=== PATIENT | female | born 1995 | race Caucasian/White ===

== ENCOUNTER 2017-07-29 21:20 | Observation (INO) | payer OTHER | END 2017-07-29 23:00 | disposition home or self-care (01) | LOC: MW.OBCHECK 21:20 → MW.OB 21:23 → MW.OBCHECK 21:44 → MW.OB 21:44 | PROVIDERS: ADMIT Obstetrics & Gynecology; ATTEND Obstetrics & Gynecology | DX: O41.8X31 Other specified disorders of amniotic fluid and membranes, third trimester, fetus 1 (principal); Z3A.38 38 weeks gestation of pregnancy | CPT/HCPCS: 59025; 84112 ==

== ENCOUNTER 2017-08-03 04:05 | Inpatient (IN) | payer OTHER ==
[2017-08-03] MEDS ORDERED: Lidocaine 1% 50 ML MDV INJECT PRN (07:35)
[2017-08-03] MEDS ORDERED: Tranexamic Acid 1,000 MG in Sodium Chloride 0.9% 100 ML IV PRN (07:35)
[2017-08-03] MEDS ORDERED: Sodium Chloride 0.9% 10 ML Syringe FLUSH PRN (07:35)
[2017-08-03] MEDS ORDERED: Methylergonovine 0.2 MG/1 ML Amp IM PRN (07:35)
[2017-08-03] MEDS ORDERED: Nalbuphine 10 MG/1 ML Vial IVPUSH PRN (07:35)
[2017-08-03] MEDS ORDERED: Carboprost Tromethamine 250 MCG/1 ML Amp IM PRN (07:35)
[2017-08-03] MEDS ORDERED: Misoprostol 200 MCG Tab PO PRN (07:35)
[2017-08-03] MEDS ORDERED: Water For Irrigation,Sterile 1,000 ML Container IRR PRN (07:35)
[2017-08-03] MEDS ORDERED: Sodium Chloride 0.9% 2.5 ML Syringe FLUSH PRN (07:35)
--- NOTE | 2017-08-03 07:42 | PCM.LDHP ---
L&D History of Present Illness - General Date of Service: 08/03/17 Admit Problem/Dx: Patient Status Order with Admit Dx/Problem 08/03/17 06:04 Patient Status [ADT] Routine Admission Diagnosis/Problem Admission Diagnosis/Problem - planned 08/03/17 07:38 21 yo EDC 08/07/2017 39 3/7wks AB+, RI, GBS neg. Comes in early labor making cervical change Source of Information: Patient History Limitations: Reports: No Limitations - History of Present Illness Location, : Reports: Abdomen Quality: Reports: Ache Severity: Moderate Pain Score: 10 Improves with: Reports: None Worsens with: Reports: None Associated Symptoms: Reports: N - Related Data Allergies/Adverse Reactions: Allergies Allergy/AdvReac Type Severity Reaction Status Date / Time No Known Allergies Allergy Verified 07/29/17 21:43 H&P Review of Systems - Review of Systems: Review Of Systems: See Below General: Reports: No Symptoms HEENT: Reports: No Symptoms Pulmonary: Reports: No Symptoms Cardiovascular: Reports: No Symptoms Gastrointestinal: Reports: No Symptoms Genitourinary: Reports: No Symptoms Musculoskeletal: Reports: No Symptoms Skin: Reports: No Symptoms Psychiatric: Reports: No Symptoms Neurological: Reports: No Symptoms Hematologic/Lymphatic: Reports: No Symptoms Immunologic: Reports: No Symptoms L&D Exam - Exam Exam: See Below - Vital Signs Weight: 96.162 kg - OB Specific Fundal Height In cm: 39 Contraction Intensity: Moderate to Strong Movement: Active Heart Tones: Present Heart Rate (FHR) Variability: Moderate (6-25 bmp) Presentation: Vertex - Montejo Score Montejo Score Cervix Position: Posterior Montejo Score Consistency: Soft Montejo Score Effacement: 51-70% Montejo Score Dilation: 3-4 cm Montejo Score 's Station: -2 Montejo Score Total: 7 - Exam General: Alert, Cooperative HEENT: Hearing Intact Lungs: Clear to Auscultation, Normal Respiratory Effort Cardiovascular: Regular Rate, Regular Rhythm, Normal S1, Normal S2 GI/Abdominal Exam: Soft Rectal Exam: Deferred Genitourinary: Normal external exam, Cervical dilitation Back Exam: Full Range of Motion Extremities: Normal Range of Motion, Non-Tender, No Pedal Edema, Normal Capillary Refill Skin: Warm, Dry, Intact Neurological: Cranial Nerves Intact, Normal Gait, Normal Speech, Normal Tone Psychiatric: Alert, Normal Affect, Normal Mood - Problem List (1) Supervision of normal IUP (intrauterine ) in primigravida SNOMED Code(s): 51361956, 145333131, 920678724, 729576836 ICD Code: Z34.00 - ENCNTR FOR SUPRVSN OF NORMAL FIRST , UNSP TRIMESTER Status: Acute Priority: High Current Visit: Yes Qualifiers: Trimester: third trimester Qualified Code(s): Z34.03 - Encounter for supervision of normal first , third trimester Problem List Initiated/Reviewed/Updated: Yes Orders Last 24hrs: Active Orders 24 hr Category Date Time Status Patient Status [ADT] Routine ADT 08/03/17 06:04 Active Non Stress Test [RC] PER UNIT ROUTINE Care 08/03/17 06:04 Active Up ad Dana [RC] ASDIRECTED Care 08/03/17 06:04 Active Vaginal Exam [RC] Click to Edit Care 08/03/17 06:04 Active Vital Signs [RC] PER UNIT ROUTINE Care 08/03/17 06:04 Active Resuscitation Status Routine Resus Stat 08/03/17 06:03 Ordered Assessment/Plan Comment:: Labor A: 21 yo EDC 08/07/2017 39 3/7wks AB+, RI, GBS neg. Comes in early labor making cervical change P: Admit to L&D, epidural prn, anticipate
[2017-08-03] MEDS ORDERED: Oxytocin/0.9 % Sodium Chloride 30 UNIT/500 ML BAG IV SCH ×2 (07:45→12:15)
[2017-08-03] MEDS: Lactated Ringers 1,000 ML IV SCH ×2 (09:17→12:26)
--- NOTE | 2017-08-03 10:06 | PCM.PREANE ---
Preanesthetic Assessment - Anesthesia/Transfusion/Family Hx Anesthesia History: Prior Anesthesia Without Reaction Transfusion History: No Prior Transfusion(s) - Physical Assessment NPO Status Date: 08/03/17 NPO Status Time: 06:00 Height: 1.7 m Weight: 96.162 kg ASA Class: 1 Airway Class: Mallampati = 2 Dentition: Reports: Normal Dentition ROM/Head Extension: Full - Lab Values: Laboratory Last Values WBC 15.42 K/uL (4.0-11.0) H 08/03/17 07:57 RBC 4.02 M/uL (4.30-5.90) L 08/03/17 07:57 Hgb 11.0 g/dL (12.0-16.0) L 08/03/17 07:57 Hct 32.8 % (36.0-46.0) L 08/03/17 07:57 MCV 81.6 fL (80.0-98.0) 08/03/17 07:57 MCH 27.4 pg (27.0-32.0) 08/03/17 07:57 MCHC 33.5 g/dL (31.0-37.0) 08/03/17 07:57 RDW Std Deviation 42.2 fl (28.0-62.0) 08/03/17 07:57 RDW Coeff of Chip 14 % (11.0-15.0) 08/03/17 07:57 Plt Count 269 K/uL (150-400) 08/03/17 07:57 MPV 10.60 fL (7.40-12.00) 08/03/17 07:57 Nucleated RBC % 0.0 /100WBC 08/03/17 07:57 Nucleated RBCs # 0 K/uL 08/03/17 07:57 Blood Type AB POSITIVE 08/03/17 07:57 Antibody Screen NEGATIVE 08/03/17 07:57 - Allergies Allergies/Adverse Reactions: Allergies Allergy/AdvReac Type Severity Reaction Status Date / Time No Known Allergies Allergy Verified 07/29/17 21:43 - Acknowledgements Anesthesia Type Planned: Epidural Pt an Appropriate Candidate for the Planned Anesthesia: Yes Alternatives and Risks of Anesthesia Discussed w Pt/Guardian: Yes Pt/Guardian Understands and Agrees with Anesthesia Plan: Yes PreAnesthesia Questionnaire - Past Surgical History Musculoskeletal Surgical History: Reports: Other (See Below) Other Musculoskeletal Surgeries/Procedures:: pins in right ankle - SUBSTANCE USE Smoking Status *Q: Never Smoker Second Hand Smoke Exposure: No - CURRENT (IN HOUSE) MEDS Current Meds: Current Medications Carboprost Tromethamine (Hemabate Ds) 250 mcg IM ASDIRECTED PRN PRN Reason: Post Hemorrhage Tranexamic Acid 1,000 mg/ (Sodium Chloride) 110 mls @ 660 mls/hr IV ONETIME PRN PRN Reason: Bleeding Lactated Ringer's (Ringers, Lactated) 1,000 mls @ 150 mls/hr IV ASDIRECTED MAGDALENA Oxytocin/Sodium Chloride (Oxytocin 30 Unit/500 Ml-Ns) 30 unit in 500 mls @ 500 mls/hr IV TITRATE MAGDALENA Lidocaine HCl (Xylocaine 1%) 50 ml INJECT .ONCE PRN PRN Reason: Laceration repair Methylergonovine Maleate (Methergine) 0.2 mg IM ASDIRECTED PRN PRN Reason: Post Hemorrhage Misoprostol (Cytotec) 200 mcg PO .ONCE PRN PRN Reason: Post Hemorrhage Nalbuphine HCl (Nubain) 10 mg IVPUSH Q1H PRN PRN Reason: Pain (severe 7-10) Sodium Chloride (Saline Flush) 10 ml FLUSH ASDIRECTED PRN PRN Reason: Keep Vein Open Sodium Chloride (Saline Flush) 2.5 ml FLUSH ASDIRECTED PRN PRN Reason: Keep Vein Open Sterile Water (Sterile Water For Irrigation) 1,000 ml IRR ASDIRECTED PRN PRN Reason: delivery Discontinued Medications Fentanyl/Bupivacaine HCl (Mcfaplqi-Ktiua-Mn 2 Mcg/Ml-0.125%) Confirm Administered Dose 100 mls @ as directed ROSEMARY LEDBETTER-MED ONE Stop: 08/03/17 09:29
--- NOTE | 2017-08-03 10:10 | PCM.PRNOTE ---
- Free Text/Narrative Note: Anes Note Patient requestes epidural for L&D. Risks and methods were discussed. Sitting Position Level L3-4 Bet prep X3. Local 3cc 1% lido. 17X3 7/8 tuohy needls. Epdiural space acheived but unable to thread cather. Second approach with CHARANJIT perfrmed. Catheter threads with ease to 4cm depth. Dressing applied. Test does 3cc 1.5% lido with epi neg. Load 10 cc pump solution in slow divided doses. Pump started at 8 cc /hr with 6 cc q 20 min prn bolus. Evelio reports excellent analgesia. Time with patient [id number] Bright Renteria CRNA
[2017-08-03] MEDS ORDERED: Terbutaline 1 MG/ML SDV SUBCUT PRN (12:04)
[2017-08-03] MEDS ORDERED: Lanolin 100% Cream 7 GM Tube TOP PRN (14:38)
[2017-08-03] MEDS ORDERED: Acetaminophen 500 MG Tab PO PRN ×2 (14:38)
[2017-08-03] MEDS ORDERED: oxyCODONE 5 MG Tab PO PRN (14:38)
[2017-08-03] MEDS ORDERED: Benzocaine/Menthol 20%-0.5% Spray 78 GM Cannister TOP PRN (14:38)
[2017-08-03] MEDS ORDERED: Ibuprofen 800 MG Tab PO PRN (14:38)
[2017-08-03] MEDS ORDERED: Docusate Sodium 100 MG Cap PO PRN (14:38)
[2017-08-03] MEDS ORDERED: Bisacodyl 10 MG Supp RECTAL PRN (14:38)
[2017-08-03] MEDS ORDERED: Witch Hazel Medicated Pads 40/Jar TOP PRN (14:38)
[2017-08-03] MEDS ORDERED: Ibuprofen 400 MG Tab PO PRN (14:38)
--- NOTE | 2017-08-03 14:42 | PCM.DEL ---
L & D Note - General Info Date of Service: 08/03/17 Mother's Due Date: 08/07/17 - Delivery Note Labor: Spontaneous Delivery Outcome: Livebirth Infant Delivery Method: Spontaneous Vaginal Delivery-Single Delivery Mode: Spontaneous Presentation: Vertex Nuchal Cord: None Anesthesia Type: Epidural Amniotic Fluid Description: Clear Episiotomy Type: None Laceration: None Placenta: Intact, Spontaneous Cord: 3 Vessels Estimated Blood Loss: 100 Resuscitation Needed: No Score 1 min: 8 Score 5 min: 9 Second Stage Interventions: Reports: Pushing, Pulls Own Legs Back - General Info Date of Service: 08/03/17 Admission Dx/Problem (Free Text): Patient Status Order with Admit Dx/Problem 08/03/17 06:04 Patient Status [ADT] Routine Admission Diagnosis/Problem Admission Diagnosis/Problem - planned 08/03/17 07:38 21 yo EDC 08/07/2017 39 3/7wks AB+, RI, GBS neg. Comes in early labor making cervical change Functional Status: Reports: Pain Controlled - Review of Systems General: Reports: No Symptoms HEENT: Reports: No Symptoms Pulmonary: Reports: No Symptoms Cardiovascular: Reports: No Symptoms Gastrointestinal: Reports: No Symptoms Genitourinary: Reports: No Symptoms Musculoskeletal: Reports: No Symptoms Skin: Reports: No Symptoms Neurological: Reports: No Symptoms Psychiatric: Reports: No Symptoms - Patient Data Weight - Most Recent: 96.162 kg Lab Results Last 24 Hours: Laboratory Results - last 24 hr 08/03/17 08/03/17 Range/Units 07:57 07:57 WBC 15.42 H (4.0-11.0) K/uL RBC 4.02 L (4.30-5.90) M/uL Hgb 11.0 L (12.0-16.0) g/dL Hct 32.8 L (36.0-46.0) % MCV 81.6 (80.0-98.0) fL MCH 27.4 (27.0-32.0) pg MCHC 33.5 (31.0-37.0) g/dL RDW Std Deviation 42.2 (28.0-62.0) fl RDW Coeff of Chip 14 (11.0-15.0) % Plt Count 269 (150-400) K/uL MPV 10.60 (7.40-12.00) fL Nucleated RBC % 0.0 /100WBC Nucleated RBCs # 0 K/uL Blood Type AB POSITIVE Antibody Screen NEGATIVE Med Orders - Current: Current Medications Acetaminophen (Tylenol Extra Strength) 500 mg PO Q4H PRN PRN Reason: Pain Acetaminophen (Tylenol Extra Strength) 1,000 mg PO Q4H PRN PRN Reason: Pain Benzocaine/Menthol (Dermoplast Pain Relief 20%-0.5% [place]) 78 gm TOP ASDIRECTED PRN PRN Reason: Perineal Comfort Measure Bisacodyl (Dulcolax) 10 mg RECTAL .ONCE PRN PRN Reason: Constipation Docusate Sodium (Colace) 100 mg PO BID PRN PRN Reason: Constipation Emollient Ointment (Lansinoh Hpa) 0 gm TOP ASDIRECTED PRN PRN Reason: Sore Nipples Ibuprofen (Motrin) 400 mg PO Q4H PRN PRN Reason: Pain Ibuprofen (Motrin) 800 mg PO Q6H PRN PRN Reason: Pain Oxycodone HCl (Oxycodone) 5 mg PO Q2H PRN PRN Reason: Pain Witch Gina (Tucks) 1 pad TOP ASDIRECTED PRN PRN Reason: comfort care Discontinued Medications Carboprost Tromethamine (Hemabate Ds) 250 mcg IM ASDIRECTED PRN PRN Reason: Post Hemorrhage Tranexamic Acid 1,000 mg/ (Sodium Chloride) 110 mls @ 660 mls/hr IV ONETIME PRN PRN Reason: Bleeding Lactated Ringer's (Ringers, Lactated) 1,000 mls @ 150 mls/hr IV ASDIRECTED MAGDALENA Last Admin: 08/03/17 12:26 Dose: 150 mls/hr Oxytocin/Sodium Chloride (Oxytocin 30 Unit/500 Ml-Ns) 30 unit in 500 mls @ 500 mls/hr IV TITRATE MAGDALENA Fentanyl/Bupivacaine HCl (Rcaozbpp-Nszlj-Bz 2 Mcg/Ml-0.125%) Confirm Administered Dose 100 mls @ as directed ROSEMARY BarajasSTK-MED ONE Stop: 08/03/17 09:29 Oxytocin/Sodium Chloride (Oxytocin 30 Unit/500 Ml-Ns) 30 unit in 500 mls @ 2 mls/hr IV TITRATE MAGDALENA; Protocol Last Titration: 08/03/17 13:02 Dose: 4 munits/min, 4 mls/hr Lidocaine HCl (Xylocaine 1%) 50 ml INJECT .ONCE PRN PRN Reason: Laceration repair Methylergonovine Maleate (Methergine) 0.2 mg IM ASDIRECTED PRN PRN Reason: Post Hemorrhage Misoprostol (Cytotec) 200 mcg PO .ONCE PRN PRN Reason: Post Hemorrhage Nalbuphine HCl (Nubain) 10 mg IVPUSH Q1H PRN PRN Reason: Pain (severe 7-10) Sodium Chloride (Saline Flush) 10 ml FLUSH ASDIRECTED PRN PRN Reason: Keep Vein Open Sodium Chloride (Saline Flush) 2.5 ml FLUSH ASDIRECTED PRN PRN Reason: Keep Vein Open Sterile Water (Sterile Water For Irrigation) 1,000 ml IRR ASDIRECTED PRN PRN Reason: delivery Terbutaline Sulfate (Brethine) 0.25 mg SUBCUT ASDIRECTED PRN PRN Reason: Tacysystole - Exam General: Alert, Oriented, Cooperative Lungs: Normal Respiratory Effort (Female) Exam: Normal External Exam, Normal Bimanual Exam, Vaginal Bleeding Back Exam: Full Range of Motion Extremities: Normal Inspection, Normal Range of Motion, Non-Tender, No Pedal Edema, Normal Capillary Refill Skin: Warm, Dry, Intact Wound/Incisions: Healing Well Neurological: No New Focal Deficit, Normal Speech, Normal Tone Psy/Mental Status: Alert, Normal Affect, Normal Mood - Problem List & Annotations (1) Supervision of normal IUP (intrauterine ) in primigravida SNOMED Code(s): 76204523, 975517408, 473610303, 887454509 Code(s): Z34.00 - ENCNTR FOR SUPRVSN OF NORMAL FIRST , UNSP TRIMESTER Status: Acute Priority: High Current Visit: Yes Qualifiers: Trimester: third trimester Qualified Code(s): Z34.03 - Encounter for supervision of normal first , third trimester (2) (normal spontaneous vaginal delivery) SNOMED Code(s): 15620102 Code(s): O80 - ENCOUNTER FOR FULL-TERM UNCOMPLICATED DELIVERY Status: Acute Current Visit: Yes - Problem List Review Problem List Initiated/Reviewed/Updated: Yes - My Orders Last 24 Hours: My Active Orders 08/03/17 07:35 Heart Tones [RC] CONTINUOUS May Shower [RC] ASDIRECTED Notify Provider [RC] PRN Vaginal Exam [RC] PRN Vital Signs [RC] PER UNIT ROUTINE 08/03/17 12:04 Bedrest Bathroom Privileges [RC] ASDIRECTED Communication Order [RC] ASDIRECTED Communication Order [RC] ASDIRECTED Notify Provider [RC] PRN Oxygen Therapy [RC] ASDIRECTED Vaginal Exam [RC] PRN Vital Signs [RC] PER UNIT ROUTINE 08/03/17 14:38 May Shower [RC] ASDIRECTED Up ad Dana [RC] ASDIRECTED Vital Signs [RC] PER UNIT ROUTINE Acetaminophen [Tylenol Extra Strength] 1,000 mg PO Q4H PRN Acetaminophen [Tylenol Extra Strength] 500 mg PO Q4H PRN Benzocaine/Menthol [Dermoplast Pain Relief 20%-0.5% [place]] 78 gm TOP ASDIRECTED PRN Bisacodyl [Dulcolax] 10 mg RECTAL .ONCE PRN Docusate Sodium [Colace] 100 mg PO BID PRN Ibuprofen [Motrin] 400 mg PO Q4H PRN Ibuprofen [Motrin] 800 mg PO Q6H PRN Lanolin [Lansinoh HPA] See Dose Instructions TOP ASDIRECTED PRN Witch Gina [Tucks] 1 pad TOP ASDIRECTED PRN oxyCODONE 5 mg PO Q2H PRN Assess Lochia [WOMSER] Per Unit Routine Assess Uterine Involution [WOMSER] Per Unit Routine Peripheral IV Discontinue [OM.PC] Routine Resuscitation Status Routine 08/03/17 14:39 Patient Status [ADT] Routine 08/03/17 Dinner Regular Diet [DIET] - Plan Plan:: Labor A: 21 yo EDC 08/07/2017 39 3/7wks AB+, RI, GBS neg. Comes in early labor making cervical change P: Admit to L&D, epidural prn, anticipate Delivery A: of viable female [place], APGARS 8/9, Wt: pending, Intact perineum, EBL 100cc, Mother and baby left in stable condition for recovery.
--- NOTE | 2017-08-04 07:47 | PCM.DCSUM1 ---
Discharge Summary - Hospital Course Free Text/Narrative:: Discharge home with infant. Follow up in 6 weeks or sooner if needed. - Discharge Data Discharge Date: 08/04/17 Discharge Disposition: Home, Self-Care 01 Condition: Good - Discharge Diagnosis/Problem(s) (1) Supervision of normal IUP (intrauterine ) in primigravida SNOMED Code(s): 21027615, 592237636, 604430829, 628993822 ICD Code: Z34.00 - ENCNTR FOR SUPRVSN OF NORMAL FIRST , UNSP TRIMESTER Status: Acute Priority: High Current Visit: Yes Qualifiers: Trimester: third trimester Qualified Code(s): Z34.03 - Encounter for supervision of normal first , third trimester (2) (normal spontaneous vaginal delivery) SNOMED Code(s): 41126393 ICD Code: O80 - ENCOUNTER FOR FULL-TERM UNCOMPLICATED DELIVERY Status: Acute Current Visit: Yes - Patient Instructions Diet: Usual Diet as Tolerated Activity: As Tolerated, No Strenuous Activities, Rest and Relax Today Driving: May Drive Today Showering/Bathing: May Shower Notify Provider of: Fever, Increased Pain, Swelling and Redness, Nausea and/or Vomiting Other/Special Instructions: Discharge home with infant. Follow up in 6 weeks or sooner if needed. - Discharge Plan Home Medications: Home Meds Pnv No.95/Ferrous Fum/Folic AC [ Multivitamin Tablet] 1 each PO DAILY [History] Referrals: [facility] [Outside] Anni Wilson CNM [Mid-] - 09/14/17 3:00 pm - General Info Date of Service: 08/04/17 Admission Dx/Problem (Free Text: Patient Status Order with Admit Dx/Problem 08/03/17 06:04 Patient Status [ADT] Routine Admission Diagnosis/Problem Admission Diagnosis/Problem - planned 08/03/17 07:38 21 yo EDC 08/07/2017 39 3/7wks AB+, RI, GBS neg. Comes in early labor making cervical change Functional Status: Reports: Pain Controlled, Tolerating Diet, Ambulating, Urinating - Review of Systems General: Reports: No Symptoms HEENT: Reports: No Symptoms Pulmonary: Reports: No Symptoms Cardiovascular: Reports: No Symptoms Gastrointestinal: Reports: No Symptoms Genitourinary: Reports: No Symptoms Musculoskeletal: Reports: No Symptoms Skin: Reports: No Symptoms Neurological: Reports: No Symptoms Psychiatric: Reports: No Symptoms - Patient Data Vitals - Most Recent: Last Vital Signs Temp 36.6 C 08/04/17 04:22 Pulse 80 08/04/17 04:22 Resp 18 08/04/17 04:22 BP 121/67 08/04/17 04:22 Pulse Ox 94 L 08/04/17 04:22 Weight - Most Recent: 96.162 kg Lab Results - Last 24 hrs: Laboratory Results - last 24 hr 08/03/17 08/03/17 Range/Units 07:57 07:57 WBC 15.42 H (4.0-11.0) K/uL RBC 4.02 L (4.30-5.90) M/uL Hgb 11.0 L (12.0-16.0) g/dL Hct 32.8 L (36.0-46.0) % MCV 81.6 (80.0-98.0) fL MCH 27.4 (27.0-32.0) pg MCHC 33.5 (31.0-37.0) g/dL RDW Std Deviation 42.2 (28.0-62.0) fl RDW Coeff of Chip 14 (11.0-15.0) % Plt Count 269 (150-400) K/uL MPV 10.60 (7.40-12.00) fL Nucleated RBC % 0.0 /100WBC Nucleated RBCs # 0 K/uL Blood Type AB POSITIVE Antibody Screen NEGATIVE Med Orders - Current: Current Medications Acetaminophen (Tylenol Extra Strength) 500 mg PO Q4H PRN PRN Reason: Pain Acetaminophen (Tylenol Extra Strength) 1,000 mg PO Q4H PRN PRN Reason: Pain Benzocaine/Menthol (Dermoplast Pain Relief 20%-0.5% [place]) 78 gm TOP ASDIRECTED PRN PRN Reason: Perineal Comfort Measure Bisacodyl (Dulcolax) 10 mg RECTAL .ONCE PRN PRN Reason: Constipation Docusate Sodium (Colace) 100 mg PO BID PRN PRN Reason: Constipation Emollient Ointment (Lansinoh Hpa) 0 gm TOP ASDIRECTED PRN PRN Reason: Sore Nipples Ibuprofen (Motrin) 400 mg PO Q4H PRN PRN Reason: Pain Ibuprofen (Motrin) 800 mg PO Q6H PRN PRN Reason: Pain Oxycodone HCl (Oxycodone) 5 mg PO Q2H PRN PRN Reason: Pain Witch Gina (Tucks) 1 pad TOP ASDIRECTED PRN PRN Reason: comfort care Discontinued Medications Carboprost Tromethamine (Hemabate Ds) 250 mcg IM ASDIRECTED PRN PRN Reason: Post Hemorrhage Tranexamic Acid 1,000 mg/ (Sodium Chloride) 110 mls @ 660 mls/hr IV ONETIME PRN PRN Reason: Bleeding Lactated Ringer's (Ringers, Lactated) 1,000 mls @ 150 mls/hr IV ASDIRECTED MAGDALENA Last Admin: 08/03/17 12:26 Dose: 150 mls/hr Oxytocin/Sodium Chloride (Oxytocin 30 Unit/500 Ml-Ns) 30 unit in 500 mls @ 500 mls/hr IV TITRATE MAGDALENA Fentanyl/Bupivacaine HCl (Rrkoxrwz-Iahiu-Yf 2 Mcg/Ml-0.125%) Confirm Administered Dose 100 mls @ as directed EP .STK-MED ONE Stop: 08/03/17 09:29 Oxytocin/Sodium Chloride (Oxytocin 30 Unit/500 Ml-Ns) 30 unit in 500 mls @ 2 mls/hr IV TITRATE MAGDALENA; Protocol Last Titration: 08/03/17 14:55 Dose: 250 munits/min, 250 mls/hr Lidocaine HCl (Xylocaine 1%) 50 ml INJECT .ONCE PRN PRN Reason: Laceration repair Last Admin: 08/03/17 11:00 Dose: 50 ml Methylergonovine Maleate (Methergine) 0.2 mg IM ASDIRECTED PRN PRN Reason: Post Hemorrhage Misoprostol (Cytotec) 200 mcg PO .ONCE PRN PRN Reason: Post Hemorrhage Nalbuphine HCl (Nubain) 10 mg IVPUSH Q1H PRN PRN Reason: Pain (severe 7-10) Sodium Chloride (Saline Flush) 10 ml FLUSH ASDIRECTED PRN PRN Reason: Keep Vein Open Sodium Chloride (Saline Flush) 2.5 ml FLUSH ASDIRECTED PRN PRN Reason: Keep Vein Open Sterile Water (Sterile Water For Irrigation) 1,000 ml IRR ASDIRECTED PRN PRN Reason: delivery Terbutaline Sulfate (Brethine) 0.25 mg SUBCUT ASDIRECTED PRN PRN Reason: Tacysystole - Exam General: Reports: Alert, Oriented, Cooperative, No Acute Distress Lungs: Reports: Clear to Auscultation, Normal Respiratory Effort Cardiovascular: Reports: Regular Rate, Regular Rhythm, No Murmurs GI/Abdominal Exam: Soft, Non-Tender (Female) Exam: Vaginal Bleeding Rectal (Female) Exam: Deferred Back Exam: Reports: Full Range of Motion Extremities: Normal Range of Motion, Non-Tender, No Pedal Edema, Normal Capillary Refill Skin: Reports: Warm, Dry, Intact Wound/Incisions: Reports: Healing Well Neurological: Reports: No New Focal Deficit, Normal Speech, Normal Tone Psy/Mental Status: Reports: Alert, Normal Affect, Normal Mood
--- NOTE | 2017-08-04 08:09 | PCM.POSTAN ---
POST ANESTHESIA ASSESSMENT - MENTAL STATUS Mental Status: Alert - RESPIRATORY Respiratory Status: Respiratory Rate WNL - CARDIOVASCULAR CV Status: Pulse Rate WNL - GASTROINTESTINAL GI Status: No Symptoms - POST OP HYDRATION Hydration Status: Adequate & Stable
--- NOTE | 2017-08-04 08:09 | PCM48HPAN ---
Post Anesthesia Note - EVALUATION WITHIN 48HRS OF ANESTHETIC Vital Signs in Normal Range: Yes Patient Participated in Evaluation: Yes Respiratory Function Stable: Yes Airway Patent: Yes Cardiovascular Function Stable: Yes Hydration Status Stable: Yes Pain Control Satisfactory: Yes Nausea and Vomiting Control Satisfactory: Yes Mental Status Recovered: Yes Resp Rate: 18
--- NOTE | 2017-08-05 08:20 | PCM.PNPP ---
- General Info Date of Service: 08/05/17 Functional Status: Reports: Pain Controlled, Tolerating Diet, Ambulating, Urinating - Review of Systems General: Reports: Fatigue. Denies: Fever Pulmonary: Denies: Shortness of Breath Cardiovascular: Denies: Chest Pain, Palpitations, Lightheadedness Gastrointestinal: Denies: Abdominal Pain, Nausea, Vomiting Genitourinary: Denies: Flank Pain Neurological: Reports: No Symptoms Psychiatric: Reports: No Symptoms - General Info Date of Service: 08/05/17 - Patient Data Vital Signs - Most Recent: Last Vital Signs Temp 36.8 C 08/05/17 05:38 Pulse 73 08/05/17 05:38 Resp 17 08/05/17 05:38 BP 113/78 08/05/17 05:38 Pulse Ox 97 08/05/17 05:38 Weight - Most Recent: 96.162 kg Med Orders - Current: Current Medications Acetaminophen (Tylenol Extra Strength) 500 mg PO Q4H PRN PRN Reason: Pain Acetaminophen (Tylenol Extra Strength) 1,000 mg PO Q4H PRN PRN Reason: Pain Benzocaine/Menthol (Dermoplast Pain Relief 20%-0.5% [place]) 78 gm TOP ASDIRECTED PRN PRN Reason: Perineal Comfort Measure Bisacodyl (Dulcolax) 10 mg RECTAL .ONCE PRN PRN Reason: Constipation Docusate Sodium (Colace) 100 mg PO BID PRN PRN Reason: Constipation Emollient Ointment (Lansinoh Hpa) 0 gm TOP ASDIRECTED PRN PRN Reason: Sore Nipples Ibuprofen (Motrin) 400 mg PO Q4H PRN PRN Reason: Pain Ibuprofen (Motrin) 800 mg PO Q6H PRN PRN Reason: Pain Oxycodone HCl (Oxycodone) 5 mg PO Q2H PRN PRN Reason: Pain Witch Gina (Tucks) 1 pad TOP ASDIRECTED PRN PRN Reason: comfort care Discontinued Medications Carboprost Tromethamine (Hemabate Ds) 250 mcg IM ASDIRECTED PRN PRN Reason: Post Hemorrhage Tranexamic Acid 1,000 mg/ (Sodium Chloride) 110 mls @ 660 mls/hr IV ONETIME PRN PRN Reason: Bleeding Lactated Ringer's (Ringers, Lactated) 1,000 mls @ 150 mls/hr IV ASDIRECTED MAGDALENA Last Admin: 08/03/17 12:26 Dose: 150 mls/hr Oxytocin/Sodium Chloride (Oxytocin 30 Unit/500 Ml-Ns) 30 unit in 500 mls @ 500 mls/hr IV TITRATE MAGDALENA Fentanyl/Bupivacaine HCl ([id number]-[id number]-Ti 2 Mcg/Ml-0.125%) Confirm Administered Dose 100 mls @ as directed EP .STK-MED ONE Stop: 08/03/17 09:29 Oxytocin/Sodium Chloride (Oxytocin 30 Unit/500 Ml-Ns) 30 unit in 500 mls @ 2 mls/hr IV TITRATE MAGDALENA; Protocol Last Titration: 08/03/17 14:55 Dose: 250 munits/min, 250 mls/hr Lidocaine HCl (Xylocaine 1%) 50 ml INJECT .ONCE PRN PRN Reason: Laceration repair Last Admin: 08/03/17 11:00 Dose: 50 ml Methylergonovine Maleate (Methergine) 0.2 mg IM ASDIRECTED PRN PRN Reason: Post Hemorrhage Misoprostol (Cytotec) 200 mcg PO .ONCE PRN PRN Reason: Post Hemorrhage Nalbuphine HCl (Nubain) 10 mg IVPUSH Q1H PRN PRN Reason: Pain (severe 7-10) Sodium Chloride (Saline Flush) 10 ml FLUSH ASDIRECTED PRN PRN Reason: Keep Vein Open Sodium Chloride (Saline Flush) 2.5 ml FLUSH ASDIRECTED PRN PRN Reason: Keep Vein Open Sterile Water (Sterile Water For Irrigation) 1,000 ml IRR ASDIRECTED PRN PRN Reason: delivery Terbutaline Sulfate (Brethine) 0.25 mg SUBCUT ASDIRECTED PRN PRN Reason: Tacysystole - Infant Interaction Support Person: - Recovery Exam Fundal Tone: Firm Fundal Level: 2 Fingerbreadths Below Umbilicus Fundal Placement: Midline Lochia Amount: Small Lochia Color: Rubra/Red Bladder Status: Voiding Urinary Elimination: Voided - Exam General: Alert, Oriented Lungs: Normal Respiratory Effort Cardiovascular: Regular Rate, Regular Rhythm GI/Abdominal Exam: Soft, No Distention Extremities: No: Ja's Sign Skin: Warm, Dry, Intact Psy/Mental Status: Alert - Problem List & Annotations (1) (normal spontaneous vaginal delivery) SNOMED Code(s): 96712857 Code(s): O80 - ENCOUNTER FOR FULL-TERM UNCOMPLICATED DELIVERY Status: Acute Current Visit: Yes - Problem List Review Problem List Initiated/Reviewed/Updated: Yes - Assessment Assessment:: PPD 2 status post - Plan Plan:: Patient had a good night, would like to go home this morning. Discharge instructions reviewed. Infection and bleeding warnings reviewed. Follow up with Paul Horn in 6 weeks
== END 2017-08-05 10:55 | disposition home or self-care (01) | DRG 775 ==
LOC: MW.OBCHECK 04:05 → MW.OB 04:08 → MW.OBCHECK 07:34 → MW.OB 07:35 → OBSVTOIN 14:25 → MW.OB 18:41
PROVIDERS: ADMIT Obstetrics & Gynecology; ATTEND Obstetrics & Gynecology
PROC: 10E0XZZ Delivery of Products of Conception, External Approach (ICD-10-PCS; principal; 2017-08-03)
DX: O80 Encounter for full-term uncomplicated delivery (principal); Z3A.39 39 weeks gestation of pregnancy; Z37.0 Single live birth
CPT/HCPCS: 36415; 59025; 59409; 85027; 86850; 86900; 86901; A9270-GY; J2590; J7120